=== PATIENT | female | born 1980 | race Hispanic/Latino ===

== ENCOUNTER → 2021-03-31 | Outpatient (CLI) | payer OTHER | END | disposition home or self-care (01) | LOC: LAB 15:46 | PROVIDERS: ATTEND Physician Assistant Medical | DX: Z31.41 Encounter for fertility testing (principal) | CPT/HCPCS: 36415; 84702 ==

== ENCOUNTER → 2022-05-10 | Outpatient (CLI) | payer OTHER ==
[~2022-05-10] MED LIST: IOHEXOL 350 MG/ML 100ML INFUS..BTL IV ONE
== END | disposition home or self-care (01) ==
LOC: RAH 13:35
PROVIDERS: ATTEND Nurse Practitioner Family
DX: K11.21 Acute sialoadenitis (principal); K12.2 Cellulitis and abscess of mouth; M79.89 Other specified soft tissue disorders
CPT/HCPCS: 70487; Q9967